=== PATIENT | female | born 1960 | race African-American/Black ===

== ENCOUNTER 2020-05-09 14:14 | Emergency (ER) | payer MEDICAID ==
[~2020-05-09] VITALS: Ht 165.1 cm; Wt 62.6 kg
[2020-05-09] MEDS ORDERED: SODIUM CHLORIDE 0.9% 1,000 ML IVB ONE (14:30)
[2020-05-09] MEDS ORDERED: ONDANSETRON HCL 4 MG/2 ML VIAL IV ONE (14:30)
[2020-05-09 14:48] LABS: Basophils # (auto) 0 10 ^3/uL (0-0.2); Eosinophils # (auto) 0.1 10 ^3/uL (0-0.8); Monocytes # (auto) 0.5 10 ^3/uL (0-1.3); Neutrophils # (auto) 2.4 10 ^3/uL (1.6-8.6); White Blood Cell 5.4 10^3/uL (4.4-10.8)
[2020-05-09 14:50] LABS: Basophils % (auto) 0.5 % (0.0-2.0); Eosinophils % (auto) 1.9 % (0.0-7.0); Hematocrit 39.2 % (36.0-46.0); Hemoglobin 13.2 g/dL (12.2-16.2); Lymphocytes # (auto) 2.3 10 ^3/uL (0.4-5.4); Lymphocytes % (auto) 43.4 % (10.0-50.0); Mean Corpuscular Hemoglobin 34.4 pg (28.0-32.0); Mean Corpuscular Hgb Conc. 33.8 g/dL (32.0-36.0); Mean Corpuscular Volume 101.8 fL (80.0-100.0); Monocytes % (auto) 9.6 % (0.0-12.0); Neutrophils % (auto) 44.6 % (37.0-80.0); Nucleated Red Blood Cells % 0.1 %; Platelet Count (auto) 252 10^3/uL (140-450); Red Blood Cells 3.85 10^6/uL (4.0-5.20); Red Cell Distribution Width 14.3 % (11.8-14.3)
[2020-05-09 15:17] LABS: INR 1.08 (0.9-1.15); Partial Thromboplastin Time 30.2 sec (23.0-31.2)
[2020-05-09 15:19] LABS: Magnesium 2.1 mg/dL (1.6-2.6)
[2020-05-09 15:23] LABS: Alanine Aminotransferase 22 U/L (13-56); Albumin 3.3 g/dL (3.4-5.0); Anion Gap 3 (5-15); Blood Urea Nitrogen 11 mg/dL (7-18); Calcium 8.9 mg/dL (8.5-10.1); Carbon Dioxide 28 mmol/L (21-32); Chloride 112 mmol/L (98-107); Glucose 79 mg/dL (74-106); Potassium 3.8 mmol/L (3.5-5.1); Sodium 143 mmol/L (136-145)
[2020-05-09 15:27] LABS: Alkaline Phosphatase 75 U/L (45-117); Aspartate Aminotransferase 18 U/L (15-37); BUN/Creatinine Ratio 21.2; Bilirubin, Total 0.9 mg/dL (0.2-1.0); GFR African American 155 mL/min; GFR Non-African American 128 mL/min
[2020-05-09] MEDS ORDERED: KETOROLAC TROMETH 30 MG/ML 1ML VIAL IV ONE ×2 (19:45)
[2020-05-09] MEDS ORDERED: SODIUM CHLORIDE 0.9% 1,000 ML IV ONE ×2 (19:45)
[2020-05-09 21:07] LABS: Urine Bacteria FEW /hpf (None Seen); Urine Blood TRACE /uL (Negative); Urine Mucus FEW (None Seen); Urine Specific Gravity 1.023 (1.001-1.035); Urine WBC 275 /hpf (0 - 5)
[2020-05-09] MEDS ORDERED: cefTRIAXone 1GM/50ML D5W 50 ML IV ONE (21:15)
[2020-05-09 22:00] VITALS: BP 145/93
== END 2020-05-09 22:25 | disposition home or self-care (01) ==
LOC: ER 14:14
DX: N20.0 Calculus of kidney (principal); K76.89 Other specified diseases of liver; N39.0 Urinary tract infection, site not specified; K59.00 Constipation, unspecified; Z20.822 Contact with and (suspected) exposure to COVID-19; Z98.84 Bariatric surgery status; Z88.0 Allergy status to penicillin; Z88.5 Allergy status to narcotic agent; Z88.1 Allergy status to other antibiotic agents; Z88.8 Allergy status to other drugs, medicaments and biological substances
CPT/HCPCS: 36415; 71045; 74176; 80053; 81001; 83690; 83735; 84484; 85025; 85610; 85730; 87426; 93005; 96361; 96365; 96375; 99285; C9803; J0696; J1885; J2405; J7030; U0003

== ENCOUNTER 2020-12-31 22:28 | Emergency (ER) | payer MEDICAID ==
[~2020-12-31] VITALS: Ht 165.1 cm; Wt 62.6 kg
[2020-12-31 23:32] LABS: Basophils # (auto) 0 10 ^3/uL (0-0.2); Basophils % (auto) 0.1 % (0.0-2.0); Eosinophils # (auto) 0.1 10 ^3/uL (0-0.8); Eosinophils % (auto) 1.6 % (0.0-7.0); Lymphocytes # (auto) 2.3 10 ^3/uL (0.4-5.4); Lymphocytes % (auto) 30.7 % (10.0-50.0); Mean Corpuscular Hemoglobin 33.8 pg (28.0-32.0); Mean Corpuscular Hgb Conc. 33.4 g/dL (32.0-36.0); Monocytes # (auto) 0.6 10 ^3/uL (0-1.3); Monocytes % (auto) 7.5 % (0.0-12.0); Neutrophils # (auto) 4.5 10 ^3/uL (1.6-8.6); Neutrophils % (auto) 60.1 % (37.0-80.0); Nucleated Red Blood Cells % 0.1 %; Red Blood Cells 3.86 10^6/uL (4.0-5.20); Red Cell Distribution Width 14.2 % (11.8-14.3); White Blood Cell 7.4 10^3/uL (4.4-10.8)
[2021-01-01 00:03] LABS: BUN/Creatinine Ratio 20.8; Calcium 8.2 mg/dL (8.5-10.1); Potassium 3.6 mmol/L (3.5-5.1)
[2021-01-01 00:08] LABS: Bilirubin, Total 1.5 mg/dL (0.2-1.0); Total Protein 6.6 g/dL (6.4-8.2)
[2021-01-01 01:21] LABS: Urine Amorphous Crystal FEW /hpf (None Seen); Urine Bacteria NONE SEEN /hpf (None Seen); Urine Blood Negative /uL (Negative); Urine Mucus FEW (None Seen); Urine Specific Gravity 1.026 (1.001-1.035); Urine WBC 42 /hpf (0 - 5)
[2021-01-01 04:00] VITALS: BP 125/65
[2021-01-01] MEDS ORDERED: ONDANSETRON ODT 4 MG TAB PO ONE (04:15)
[2021-01-01] MEDS ORDERED: ALUM & MAG HYDROX-SIMETH LIQ(MAALOX) 30 ML PO ONE (04:15)
== END 2021-01-01 04:26 | disposition home or self-care (01) ==
LOC: ER 22:32
DX: N39.0 Urinary tract infection, site not specified (principal); K29.70 Gastritis, unspecified, without bleeding; R74.8 Abnormal levels of other serum enzymes; Z98.84 Bariatric surgery status
CPT/HCPCS: 36415; 76705; 80053; 81001; 83690; 84484; 85025; 93005; 99285; Q0162

== ENCOUNTER 2021-03-18 03:04 | Emergency (ER) | payer MEDICAID | END 2021-03-18 03:15 | disposition left against medical advice (07) | LOC: ER 03:06 | DX: J11.1 Influenza due to unidentified influenza virus with other respiratory manifestations (principal); Z53.21 Procedure and treatment not carried out due to patient leaving prior to being seen by health care provider ==

== ENCOUNTER 2021-09-02 00:05 | Inpatient (IN) | payer MEDICAID ==
[~2021-09-02] VITALS: Ht 165.1 cm; Wt 30.5 kg
[2021-09-02] MEDS ORDERED: SODIUM CHLORIDE 0.9% 1,000 ML IVB ONE (00:30)
[2021-09-02] MEDS ORDERED: MORPHINE SULFATE 4 MG/ML SYR/VIAL IV ONE (00:30)
[2021-09-02] MEDS ORDERED: ONDANSETRON HCL 4 MG/2 ML VIAL IV ONE (00:30)
[2021-09-02 01:33] LABS: Urine Bacteria NONE SEEN /hpf (None Seen); Urine Blood Negative /uL (Negative); Urine Specific Gravity 1.014 (1.001-1.035); Urine WBC 45 /hpf (0 - 5)
[2021-09-02 03:20] LABS: Basophils # (auto) 0 10 ^3/uL (0-0.2); Basophils % (auto) 0.4 % (0.0-2.0); Eosinophils # (auto) 0.1 10 ^3/uL (0-0.8); Eosinophils % (auto) 1.3 % (0.0-7.0); Hematocrit 35.8 % (36.0-46.0); Hemoglobin 11.9 g/dL (12.2-16.2); Lymphocytes # (auto) 2.1 10 ^3/uL (0.4-5.4); Lymphocytes % (auto) 20.7 % (10.0-50.0); Mean Corpuscular Hemoglobin 33.7 pg (28.0-32.0); Mean Corpuscular Hgb Conc. 33.4 g/dL (32.0-36.0); Mean Corpuscular Volume 100.8 fL (80.0-100.0); Monocytes # (auto) 0.5 10 ^3/uL (0-1.3); Monocytes % (auto) 4.8 % (0.0-12.0); Neutrophils # (auto) 7.2 10 ^3/uL (1.6-8.6); Neutrophils % (auto) 72.8 % (37.0-80.0); Nucleated Red Blood Cells % 0.1 %; Red Blood Cells 3.55 10^6/uL (4.0-5.20); Red Cell Distribution Width 14.9 % (11.8-14.3); White Blood Cell 9.9 10^3/uL (4.4-10.8)
[2021-09-02 03:39] LABS: Albumin 3.1 g/dL (3.4-5.0); Calcium 8.4 mg/dL (8.5-10.1); Potassium 4.1 mmol/L (3.5-5.1)
[2021-09-02 03:41] LABS: Bilirubin, Total 0.4 mg/dL (0.2-1.0); Total Protein 6.2 g/dL (6.4-8.2)
[2021-09-02] MEDS ORDERED: cefTRIAXone 1GM/50ML D5W 50 ML IV ONE (05:15)
[2021-09-02] MEDS ORDERED: ONDANSETRON HCL 4 MG/2 ML VIAL IV PRN (06:15)
[2021-09-02] MEDS ORDERED: SODIUM CHLORIDE 0.9% 1,000 ML IV SCH (06:15)
[2021-09-02] MEDS ORDERED: NITROGLYCERIN 0.4 MG SL TAB SL PRN (06:15)
[2021-09-02] MEDS ORDERED: LORazepam 0.5 MG TAB PO PRN (06:15)
[2021-09-02] MEDS ORDERED: DOCUSATE SOD 100 MG CAP PO PRN (06:15)
[2021-09-02] MEDS ORDERED: TEMAZEPAM 15 MG CAP PO PRN (06:15)
[2021-09-02] MEDS ORDERED: HYDROcodone-ACET 5/325MG TAB PO PRN (10:30)
[2021-09-02] MEDS ORDERED: CEPH-509 PO (11:02)
[2021-09-02] MEDS ORDERED: CEPHALEXIN 250 MG CAP PO ONE (11:15)
[2021-09-02 11:33] VITALS: BP 127/76
[2021-09-03] MEDS ORDERED: cefTRIAXone 1GM/50ML D5W 50 ML IV SCH (10:00)
== END 2021-09-02 11:42 | disposition home or self-care (01) | DRG 463 ==
LOC: EDBD 00:05 → ER 00:05 → OVERFLOW 06:05
PROVIDERS: ADMIT Hospitalist; ATTEND Hospitalist
DX: N39.0 Urinary tract infection, site not specified (principal); I10 Essential (primary) hypertension; J45.909 Unspecified asthma, uncomplicated; Z20.822 Contact with and (suspected) exposure to COVID-19; Z88.1 Allergy status to other antibiotic agents; Z88.0 Allergy status to penicillin; Z88.5 Allergy status to narcotic agent; Z98.84 Bariatric surgery status; Z90.49 Acquired absence of other specified parts of digestive tract; Z82.49 Family history of ischemic heart disease and other diseases of the circulatory system
CPT/HCPCS: 36415; 74176; 80053; 81001; 83690; 84484; 85025; 87086; 93005; 96361; 96374; 96375; G0378; J0696; J2405

== ENCOUNTER 2025-02-05 14:03 | Inpatient (IN) | payer BC, MEDICAID ==
[~2025-02-05] VITALS: Ht 165.1 cm; Wt 67.3 kg
[~2025-02-05 14:03] MED LIST: CEPH-509 PO
[2025-02-05 14:35] LABS: Hematocrit 39.6 % (36.0-46.0); Hemoglobin 13.4 g/dL (12.2-16.2); Mean Corpuscular Hemoglobin 33.0 pg (28.0-32.0); Mean Corpuscular Volume 97.3 fL (80.0-100.0); Nucleated Red Blood Cells % 0.1 %
[2025-02-05 14:45] LABS: Chloride 104 mmol/L (98-107); Sodium 141 mmol/L (136-145)
[2025-02-05 14:46] LABS: Anion Gap 8 (5-15); Calcium 9.5 mg/dL (8.7-10.4); Carbon Dioxide 29 mmol/L (20-31)
[2025-02-05 14:51] LABS: BUN/Creatinine Ratio 13.1 (10.0-20.0); Blood Urea Nitrogen 11 mg/dL (9-23); Potassium 3.1 mmol/L (3.5-5.1)
[2025-02-05 14:53] LABS: Glucose 64 mg/dL (74-106)
--- NOTE | 2025-02-05 14:54 | DVH ---
CLINICAL INFORMATION: CHEST PAIN. TECHNIQUE: Frontal and lateral chest radiographs were obtained. COMPARISON: CHEST PORTABLE on DOS: 05/09/20 FINDINGS: Lungs: Mild elevation of the right hemidiaphragm. Lungs are clear. Cardiac: Heart size is within normal limits. Pulmonary vasculature: Unremarkable Mediastinum/ese: Within normal limits. Bones: No evidence of acute osseous abnormality. Other: No other significant finding. IMPRESSION: No evidence of acute disease in the chest.
--- NOTE | 2025-02-05 15:11 | ECG ---
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
--- NOTE | 2025-02-05 15:41 | ED.PDOC ---
HPI Comments 64 y/o F, with PMHx of asthma presents to the ED for CC of chest pain. Patient states, she has been experiencing worsening left-sided chest pain that radiates to her neck x1week. Patient further reports, associated symptoms of shortness of breath, dizziness, and fatigue. Patient denies extremity swelling, palpitations, headache, nausea, or vomiting. No other symptoms or modifying factors are present at this time. Chief Complaint: Chest Pain Time Seen by MD: 15:30 Primary Care Provider: Dennis Gomez Reviewed Notes: Nurses Notes, Medications, Allergies Allergies: Coded Allergies: Codeine (Verified Allergy, Unknown, 05/09/20) Erythromycin (Verified Allergy, Unknown, 05/09/20) Hydromorphone (Verified Allergy, Unknown, 05/09/20) Penicillins (Verified Allergy, Unknown, 05/09/20) Home Meds Active Scripts Cephalexin (KEFLEX 500) 500 Mg Cap, 1 CAP PO TID for 5 Days, #15 CAP Prov:HARSHAL NUNES MD 09/02/21 Information Source: Patient Mode of Arrival: Ambulatory Severity: Moderate Timing: Weeks Duration: Since onset Prehospital treatment: None Location: Chest (L) Radiation: Neck Cardiac Risk Factors: None PE Risk Factors: None History of: None Modifying Factors: Nothing Associated Signs and Symptoms: SOB Past Medical History PAST MEDICAL HISTORY: Asthma Surgical History: Cholecystectomy SHELLFISH SORTER History: No Pertinent SHELLFISH SORTER History Family History Family History: Family hx of HTN Social History Smoker: Non-Smoker Alcohol: Rarely Drugs: Denies Drug Use Lives In: Home Constitutional: reports: fatigue; denies: chills, diaphoresis, fever, malaise, sweats, weakness, others EENTM: denies: blurred vision, double vision, ear bleeding, ear discharge, ear drainage, ear pain, ear ringing, eye pain, eye redness, hearing loss, mouth pain, mouth swelling, nasal discharge, nose bleeding, nose congestion, nose pain, photophobia, tearing, throat pain, throat swelling, voice changes, others Respiratory: reports: shortness of breath; denies: cough, hemoptysis, orthopnea, SOB at rest, SOB with excertion, stridor, wheezing, others Cardiovascular: reports: chest pain; denies: dizzy spells, diaphoresis, Dyspnea on exertion, edema, irregular heart beat, left arm pain, lightheadedness, palpitations, PND, syncope, others Gastrointestinal: denies: abdomen distended, abdominal pain, blood streaked bowels, constipated, diarrhea, dysphagia, difficulty swallowing, hematemesis, melena, nausea, poor appetite, poor fluid intake, rectal bleeding, rectal pain, vomiting, others Genitourinary: denies: abnormal vagina bleeding, burning, dyspareunia, dysuria, flank pain, frequency, hematuria, incontinence, pain, , vagina discharge, urgency, others Neurological: reports: dizziness; denies: fainting, headache, left sided numbness, left sided weakness, numbness, paresthesia, pre-existing deficit, right sided numbness, right sided weakness, seizure, speech problems, tingling, tremors, weakness, others Musculoskeletal: denies: back pain, gout, joint pain, joint swelling, muscle pain, muscle stiffness, neck pain, others Integumetry: denies: bruises, change in color, change in hair/nails, dryness, laceration, lesions, lumps, rash, wounds, others Allergic/Immunocompromised: denies: Difficulty Healing, Frequent Infections, Hives, Itching, others Hematologic/Lymphatic: denies: anemia, blood clots, easy bleeding, easy bruising, swollen glands, others Endocrine: denies: excessive hunger, excessive sweating, excessive thirst, excessive urination, flushing, intolerance to cold, intolerance to heat, unexplained weight gain, unexplained weight loss, others Psychiatric: denies: anxiety, bipolar disorder, depression, hopeless, panic disorder, schizophrenia, sleepless, suicidal, others All Other Systems: Reviewed and Negative Physical Exam General Appearance: No Apparent Distress, Normal HEENT: Normal ENT Inspection, Pharynx Normal Neck: Full Range of Motion, Non-Tender, Normal, Normal Inspection Respiratory: Chest Non-Tender, Lungs Clear, No Accessory Muscle Use, No Respiratory Distress, Normal Breath Sounds Cardiovascular: No Edema, No Murmur, No Gallop, Normal Peripheral Pulses, Regular Rate/Rhythm Breast Exam: Deferred Gastrointestinal: No Organomegaly, Non Tender, No Pulsatile Mass, Normal Bowel Sounds, Soft Genitalia: Deferred Pelvic: Deferred Rectal: Deferred Extremities: No calf tenderness, Normal capillary refill, Normal inspection, Normal range of motion, Non-tender, No pedal edema Musculoskeletal : Apperance: Normal Neurologic: Alert, program coordinator for residence life II-XII nml as Tested, No Motor Deficits, Normal Affect, Normal Mood, No Sensory Deficits Cerebellar Function: Normal Reflexes: Normal Skin: Dry, Normal Color, Warm Lymphatic: No Adenopathy Was a procedure done? Was a procedure done?: No CP Differential Dx Differential Diagnosis: Angina, Anxiety / Panic Attack Differential Diagnosis: HTN Essential, HTN Accelerated Differential Diagnosis: Chest Wall Pain, Costochondritis, Esophageal reflux/spasm, Gastritis X-Ray, Labs, Meds, VS Vital Signs Date Time Temp Pulse Resp B/P (MAP) Pulse Ox O2 Delivery O2 Flow Rate FiO2 02/05/25 16:03 97.7 65 18 99/66 (77) 100 97.7 99/66 (77) 02/05/25 15:10 61 02/05/25 14:10 97.9 71 16 104/65 98 97.9 02/05/25 14:09 67 Lab Test 02/05/25 15:09 02/05/25 14:14 Range/Units Troponin I High Sensitivity < 3 L < 3 L </=34 ng/L White Blood Count 7.4 4.4-10.8 10^3/uL Red Blood Count 4.07 4.0-5.20 10^6/uL Hemoglobin 13.4 12.2-16.2 g/dL Hematocrit 39.6 36.0-46.0 % Mean Corpuscular Volume 97.3 80.0-100.0 fL Mean Corpuscular Hemoglobin 33.0 H 28.0-32.0 pg Mean Corpuscular Hemoglobin Concent 33.9 32.0-36.0 g/dL Red Cell Distribution Width 14.2 11.8-14.3 % Platelet Count 264 140-450 10^3/uL Mean Platelet Volume 8.0 6.9-10.8 fL Neutrophils (%) (Auto) 52.5 37.0-80.0 % Lymphocytes (%) (Auto) 35.9 10.0-50.0 % Monocytes (%) (Auto) 10.2 0.0-12.0 % Eosinophils (%) (Auto) 1.2 0.0-7.0 % Basophils (%) (Auto) 0.2 0.0-2.0 % Neutrophils # (Auto) 3.9 1.6-8.6 10 ^3/uL Lymphocytes # (Auto) 2.6 0.4-5.4 10 ^3/uL Monocytes # (Auto) 0.7 0-1.3 10 ^3/uL Eosinophils # (Auto) 0.1 0-0.8 10 ^3/uL Basophils # (Auto) 0 0-0.2 10 ^3/uL Nucleated Red Blood Cells 0.1 % Sodium Level 141 136-145 mmol/L Potassium Level 3.1 L 3.5-5.1 mmol/L Chloride Level 104 98-107 mmol/L Carbon Dioxide Level 29 20-31 mmol/L Anion Gap 8 5-15 Blood Urea Nitrogen 11 9-23 mg/dL Creatinine 0.84 0.550-1.02 mg/dL Glomerular Filtration Rate Calc 78 >90 mL/min BUN/Creatinine Ratio 13.1 10.0-20.0 Serum Glucose 64 L 74-106 mg/dL Calcium Level 9.5 8.7-10.4 mg/dL [place] [id number] Ph: [phone] DIAGNOSTIC IMAGING Diagnostic Imaging Report : [id number] Signed PATIENT: BIENVENIDO BRITOACCT: [id number] UNIT: [id number] : 1960 LOC: ER ROOM / BED: / AGE / SEX: 64 / F ADM STATUS: REG ER SERVICE ORDERING PHYSICIAN: ROMEO JONES MD PROCEDURE(s): CXR2 - CHEST TWO VIEWS ROUTINE REASON: CHEST PAIN ORDER NUMBER(s): [id number], ACCESSION NUMBER(s): [id number] CLINICAL INFORMATION: CHEST PAIN. TECHNIQUE: Frontal and lateral chest radiographs were obtained. COMPARISON: CHEST PORTABLE on DOS: 05/09/20 FINDINGS: Lungs: Mild elevation of the right hemidiaphragm. Lungs are clear. Cardiac: Heart size is within normal limits. Pulmonary vasculature: Unremarkable Mediastinum/ese: Within normal limits. Bones: No evidence of acute osseous abnormality. Other: No other significant finding. IMPRESSION: No evidence of acute disease in the chest. ATED BY: JOSR PAVON DO DICTATED DATE/TIME: 02/05/25 1451 SIGNED BY: JOSR PAVON DO SIGNED DATE/TIME: 02/05/25 1451 CC: Time of 1ST Reevaluation: 16:00 Reevaluation 1ST: Unchanged Patient Education/Counseling: Diagnosis, Treatment Family Education/Counseling: No Family Present SEPSIS Sepsis Screen Date sepsis recognized/suspect: Feb 05, 2025 Time Sepsis recognized/suspect: 1414 Recent Procedure: No On Antibiotic Therapy: No Respiratory Rate >20: No Heart Rate >90: No Temp<36 C (96.8 F) or >38.3 C: No SBP <90 or MAP <65 mmHG: No New Acute Mental Status Change: No Is the patient on CPAP, BIPAP,: No Physician Orders Electrocardigram (02/05/25 15:06) Electrocardigram (02/05/25 17:06) Chest Two Views Routine (02/05/25 14:29) Vital Signs Date Time Temp Pulse Resp B/P (MAP) Pulse Ox O2 Delivery O2 Flow Rate FiO2 02/05/25 16:03 97.7 65 18 99/66 (77) 100 97.7 99/66 (77) 02/05/25 15:10 61 02/05/25 14:10 97.9 71 16 104/65 98 97.9 02/05/25 14:09 67 Laboratory Tests Test 02/05/25 14:14 White Blood Count 7.4 10^3/uL (4.4-10.8) Departure 1 Departure Time of Disposition: 18:02 (Patient presented with chest pain that was concerning for possible STEMI, ACS, PE, Pneumonia, Muscle Strain, COPD, Dissection. Data: 1. I ordered and reviewed the result of at least 3 labs including a CBC, BMP, and Troponin. 2. I independently interpreted the following tests: EKG which shows sinus arrhythmia and Chest X-ray which shows benign chest.Risk:This patient has a high risk of morbidity due to further diagnostic testing or treatment and may suffer from an acute cardiac or respiratory disorder. Workup reveals concern for ACS and patient should be admitted for further workup and possible expert consultation. ) Impression: Primary Impression: Acute chest pain Disposition: ADMITTED INPATIENT Admit to: Tele Condition: Guarded Critical Care Note Critical Care Time?: Yes Critical care comment: Acute chest pain Authorized and Performed by: Romeo Jones MD Total critical care time: Approximately 39 minutes Due to a high probability of clinically significant, life threatening deterioration, the patient required my highest level of preparedness to intervene emergently and I personally spent this critical care time directly and personally managing the patient. This critical care time included obtaining a history; examining the patient; pulse oximetry; ordering and review of studies; arranging urgent treatment with development of a management plan; evaluation of patient's response to treatment; frequent reassessment; and, discussions with other providers. This critical care time was performed to assess and manage the high probability of imminent, life-threatening deterioration that could result in multi-organ failure. It was exclusive of separately billable procedures and treating other patients and teaching time. Please see my other sections and the rest of the note for further information on patient assessment and treatment. Stability Stability form required: No Heart Score Heart Score: Heart Score Response (Comments) Value History N/A 0 EKG N/A 0 Age 45-64 1 Risk Factors No known risk factors 0 Troponin Normal limit 0 Total 1 I personally scribed for ROMEO JONES MD ([email or web address]) on 02/05/25 at 15:41. Electronically submitted by Rachel Francois ([employer]). I personally scribed for ROMEO JONES MD ([email or web address]) on 02/05/25 at 15:42. Electronically submitted by Rachel Francois ([employer] I personally scribed for ROMEO JONES MD ([email or web address]) on 02/05/25 at 16:15. Electronically submitted by Rachel Francois ([facility] [employer] ROMEO JONES MD Feb 05, 2025 15:41
[2025-02-05] MEDS ORDERED: MORPHINE SULFATE INJ 2 MG/ml SYRG IV PRN (20:15)
[2025-02-05] MEDS ORDERED: NITROGLYCERIN 0.4 MG SL TAB SL PRN (20:15)
--- NOTE | 2025-02-05 21:39 | DVHHP2 ---
History of Present Illness Reason for Visit: Chest pain History of Present Illness 64-year-old female presents for evaluation of chest pain. Patient reports a one-week history of left-sided chest pain. She states his symptoms became more intense today so she presented for further evaluation. She associates shortness for breath with nausea and vomiting. Currently rates the pain at 7/10 intensity. Past Medical History Hypertension, thyroid, asthma Past Surgical History Cholecystectomy Family History Hypertension Smoke: No ALCOHOL: occassional Drugs: None Lives: with Family Review of Systems Review of Systems Review of systems are currently negative otherwise addressed in HPI. Allergies: Coded Allergies: Codeine (Verified Allergy, Unknown, 05/09/20) Erythromycin (Verified Allergy, Unknown, 05/09/20) Hydromorphone (Verified Allergy, Unknown, 05/09/20) Penicillins (Verified Allergy, Unknown, 05/09/20) Medications Current Medications Medications Dose Ordered Sig/Chavez Route Start Time Stop Time Status Last Admin Dose Admin Nitroglycerin 0.4 mg Q5MINP PRN SL 02/05/25 20:15 Morphine Sulfate 2 mg Q30M PRN IV 02/05/25 20:15 Exam Vital Signs Vital Signs Date Time Temp Pulse Resp B/P (MAP) Pulse Ox O2 Delivery O2 Flow Rate FiO2 02/05/25 20:05 98.4 82 18 104/75 (85) 99 98.4 Exam Gen: 64-year-old female in mild distress Skin: Warm, dry, normal color and texture, no rash. HEENT: Normocephalic atraumatic, mucous membranes moist and pink. Neck: Cervical and supraclavicular nodes normal without enlargement, trachea is midline, thyroid gland is normal without masses. Pulmonary: Clear to auscultation and percussion bilaterally. Cardiac: Regular rate and rhythm. No murmur Abdomen: Soft, nontender, nondistended, bowel sounds present all 4 quadrants, no guarding, no rigidity, no organomegaly. Extremities: No cyanosis, clubbing, no edema Neuro: Cranial nerves II through XII grossly intact, normal affect and speech, no focal motor deficits. Labs/Xrays ORDERING PHYSICIAN: ROMEO JONES MD PROCEDURE(s): CXR2 - CHEST TWO VIEWS ROUTINE REASON: CHEST PAIN ORDER NUMBER(s): [id number], ACCESSION NUMBER(s): [id number] CLINICAL INFORMATION: CHEST PAIN. TECHNIQUE: Frontal and lateral chest radiographs were obtained. COMPARISON: CHEST PORTABLE on DOS: 05/09/20 FINDINGS: Lungs: Mild elevation of the right hemidiaphragm. Lungs are clear. Cardiac: Heart size is within normal limits. Pulmonary vasculature: Unremarkable Mediastinum/ese: Within normal limits. Bones: No evidence of acute osseous abnormality. Other: No other significant finding. IMPRESSION: No evidence of acute disease in the chest. Labs Test 02/05/25 15:09 02/05/25 14:14 Range/Units Troponin I High Sensitivity < 3 L </=34 ng/L White Blood Count 7.4 4.4-10.8 10^3/uL Red Blood Count 4.07 4.0-5.20 10^6/uL Hemoglobin 13.4 12.2-16.2 g/dL Hematocrit 39.6 36.0-46.0 % Mean Corpuscular Volume 97.3 80.0-100.0 fL Mean Corpuscular Hemoglobin 33.0 H 28.0-32.0 pg Mean Corpuscular Hemoglobin Concent 33.9 32.0-36.0 g/dL Red Cell Distribution Width 14.2 11.8-14.3 % Platelet Count 264 140-450 10^3/uL Mean Platelet Volume 8.0 6.9-10.8 fL Neutrophils (%) (Auto) 52.5 37.0-80.0 % Lymphocytes (%) (Auto) 35.9 10.0-50.0 % Monocytes (%) (Auto) 10.2 0.0-12.0 % Eosinophils (%) (Auto) 1.2 0.0-7.0 % Basophils (%) (Auto) 0.2 0.0-2.0 % Neutrophils # (Auto) 3.9 1.6-8.6 10 ^3/uL Lymphocytes # (Auto) 2.6 0.4-5.4 10 ^3/uL Monocytes # (Auto) 0.7 0-1.3 10 ^3/uL Eosinophils # (Auto) 0.1 0-0.8 10 ^3/uL Basophils # (Auto) 0 0-0.2 10 ^3/uL Nucleated Red Blood Cells 0.1 % Sodium Level 141 136-145 mmol/L Potassium Level 3.1 L 3.5-5.1 mmol/L Chloride Level 104 98-107 mmol/L Carbon Dioxide Level 29 20-31 mmol/L Anion Gap 8 5-15 Blood Urea Nitrogen 11 9-23 mg/dL Creatinine 0.84 0.550-1.02 mg/dL Glomerular Filtration Rate Calc 78 >90 mL/min BUN/Creatinine Ratio 13.1 10.0-20.0 Serum Glucose 64 L 74-106 mg/dL Calcium Level 9.5 8.7-10.4 mg/dL SEPSIS Sepsis Screen Date sepsis recognized/suspect: Feb 05, 2025 Time Sepsis recognized/suspect: 1414 Recent Procedure: No On Antibiotic Therapy: No Respiratory Rate >20: No Heart Rate >90: No Temp<36 C (96.8 F) or >38.3 C: No SBP <90 or MAP <65 mmHG: No New Acute Mental Status Change: No Is the patient on CPAP, BIPAP,: No Physician Orders Electrocardigram (02/05/25 15:06) Electrocardigram (02/05/25 17:06) Chest Two Views Routine (02/05/25 14:29) Admit (02/05/25 20:03) Nitroglycerin Sublingual (Ntrostat Subli (02/05/25 20:15) Morphine Sulfate Injection (02/05/25 20:15) Stat Ekg For Chest Pain (02/05/25 20:03) Notify Md Of Changes From Base (02/05/25 20:03) Bottle Label Inspector For 24 Hours (02/05/25 20:03) Emergency Dysrhythmia Protocol (02/05/25 20:03) Rhythm Strips Once Every Shift (02/05/25 20:03) Oxygen By Nasal Cannula (02/05/25 20:03) Vital Signs Date Time Temp Pulse Resp B/P (MAP) Pulse Ox O2 Delivery O2 Flow Rate FiO2 02/05/25 20:05 98.4 82 18 104/75 (85) 99 98.4 02/05/25 16:03 97.7 65 18 99/66 (77) 100 97.7 99/66 (77) 02/05/25 15:10 61 02/05/25 14:10 97.9 71 16 104/65 98 97.9 02/05/25 14:09 67 Laboratory Tests Test 02/05/25 14:14 White Blood Count 7.4 10^3/uL (4.4-10.8) Assessment/Plan Assessment/Plan Assessment Chest pain rule out ACS Hypotension Hypokalemia Plan Admit the patient to telemetry to the hospitalist Echocardiogram pending Resume home medications Replete electrolytes Continue treatment per orders. Plan discussed with: Patient My Orders Orders - MARY ANNE ARTHUR Procedure Category Date Status Time Admit ADMIT 02/05/25 Transmitted 20:03 Nitroglycerin PHA 02/05/25 In Process Sublingual (Ntrostat 20:15 Morphine Sulfate PHA 02/05/25 In Process Injection 20:15 Stat Ekg For Chest SETH 02/05/25 In Process Pain 20:03 Notify Of Changes [facility] 02/05/25 In Process From Base 20:03 Bottle Label Inspector For [facility] 02/05/25 In Process 24 Hours 20:03 Emergency Dysrhythmia [facility] 02/05/25 In Process Protocol 20:03 Rhythm Strips Once [facility] 02/05/25 In Process Every Shift 20:03 Oxygen By Nasal RT 02/05/25 Transmitted Cannula 20:03 Date of Service: Feb 05, 2025 Billing Provider: MARY ANNE ARTHUR Common Visit Codes: [id number] INP/OBS CARE (HIGH) MARY ANNE ARTHUR Feb 05, 2025 21:39
[2025-02-05] MEDS ORDERED: ONDANSETRON HCL 4 MG/2 ML VIAL IV PRN (21:45)
[2025-02-05] MEDS ORDERED: ACETAMINOPHEN 325 MG TAB PO PRN (21:45)
[2025-02-05 22:00] LABS: Triglycerides 76 mg/dL (< 150)
[2025-02-05 22:02] LABS: Cholesterol 151 mg/dL (< 200); HDL Cholesterol 53 mg/dL (40-59)
[2025-02-05] MEDS: POTASSIUM CHL 20 Meq TABLET PO ONE (22:22)
[2025-02-05] MEDS: ATORVASTATIN 20 MG TAB PO SCH (22:26)
[2025-02-05 22:43] VITALS: BP 123/79; PULSE 74; RESP 17; TEMP 97.9; O2SAT 98
[2025-02-06] VITALS (8 sets, daily range): BP systolic 92–112; BP diastolic 60–76; PULSE 68–84; RESP 17–18; TEMP 96.2–98.3; O2SAT 99
[2025-02-06] MEDS ORDERED: TIZA4TAB9 PO (00:06)
[2025-02-06] MEDS ORDERED: BISA-51 OR (00:06)
[2025-02-06] MEDS ORDERED: OXYC1CAP9 PO (00:06)
[2025-02-06] MEDS ORDERED: CHLO25TA2 PO (00:06)
[2025-02-06] MEDS ORDERED: LEVO25TA6 PO (00:06)
[2025-02-06] MEDS ORDERED: ATEN50TA PO (00:06)
[2025-02-06] MEDS: LEVOTHYROXINE SODIUM 25 MCG TAB PO SCH (05:38)
--- NOTE | 2025-02-06 06:42 | ECG ---
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
[2025-02-06 07:26] LABS: Anion Gap 9 (5-15); Carbon Dioxide 27 mmol/L (20-31); Chloride 106 mmol/L (98-107); Potassium 3.7 mmol/L (3.5-5.1); Sodium 142 mmol/L (136-145)
[2025-02-06 07:28] LABS: Calcium 9.2 mg/dL (8.7-10.4)
[2025-02-06 07:32] LABS: BUN/Creatinine Ratio 28.3 (10.0-20.0); Blood Urea Nitrogen 15 mg/dL (9-23)
[2025-02-06 07:49] LABS: Glucose 70 mg/dL (74-106)
[2025-02-06] MEDS: ASPirin-EC 81 mg tab PO SCH (11:04)
--- NOTE | 2025-02-06 12:57 | DVHPN2 ---
Assessment/Plan Assessment/Plan progress note 64 F with GERD, chronic pain, hypothyroidism, liver nodule? admitted for chest pain. per pt she has cough since 6 weeks and chest pain since 2 days. also has metallic taste at mouth. no fever, chills, production. chest pain reproducible by palpation, also have epigastric tenderness. trop neg, BNP normal, lung sounds normal, CXR clear. has chronic pain and CURES reviewed, taking oxy q5 daily. used to drink, denies smomking or drugs. 02/06 seen today, pending echo physical exam aox4 clear breath sounds s1 s2 rrr chest wall tenderness on palpation abdomen soft, epigastric tenderness no LE edema labs ekg imaging reviewed echo pending read, looks wnl assessment and plan chest pain likely chostochondritis ACS ruled out chronic cough likely GERD w LPR gastritis Pepcid, Maalox Toradol once pain management pending echo flonase diet cardiac dvt ppx SCD full code Plan discussed with: Patient My Orders Orders - QING GOULD MD Procedure Category Date Status Time Oxycodone Immediate PHA 02/06/25 In Process Rel Tablet 10:30 Famotidine Tablet PHA 02/06/25 Verified (Pepcid Tablet) 22:00 Alum & Mag PHA 02/06/25 Verified Hydrox-Simethicone 18:00 Ketorolac Injection PHA 02/06/25 Verified (Toradol Injection) 13:00 Fluticasone Nasal PHA 02/06/25 Verified [place] (Flonase [place]) 22:00 Date of Service: Feb 06, 2025 Billing Provider: QING GOULD MD Common Visit Codes: [id number] INP/OBS CARE(HIGH) QING GOULD MD Feb 06, 2025 12:57
--- NOTE | 2025-02-06 13:06 | DVHSR ---
APPROVED REPORT EXAM: Two-dimensional and M-mode echocardiogram with Doppler and color Doppler. Blood Pressure: 112/65 mmHg INDICATION Chest Pain RISK FACTORS Height: 5'5", Weight: 139 DIMENSIONS LVDd 4.4 (3.8-5.7cm) LA (2D) 3.5 (1.9-4.0cm) Aortic Root 2.9 (2.0-3.7cm) LVDs 2.6 (2.5-4.0cm) LA (MM) (1.9-4.0cm) Aortic Cusp Exc 1.9 (1.5-2.0cm) EF (%) 70.0 (55-70%) Rt. Atrium 3.6 (1.9-4.0cm) Asc. Aorta 2.8 cm IVSd 0.6 (0.7-1.1cm) RV (D) 3.2 (1.8-2.4cm) PWd 0.6 (0.7-1.1cm) Mitral Valve Mitral Mitral Stenosis E wave 0.80m/s MV Mean GR. mmHg A wave 0.79m/s MV Peak GR. mmHg E/A ratio 1.0 2D MVA cm2 DECEL Time 176ms PRESS 1/2 Time ms Aortic Valve Aortic Valve Aortic Stenosis V1 1.14m/s AO Mean GR. 4mmHg V2 1.35m/s AO Peak GR. 7mmHg LVOT Diameter 2.0 (1.8-2.4cm) Doppler RADHA 2.65cm2 Pulmonic Valve V2 0.73m/s Conclusion lvef 65% normal rv function left atrium enlarged no severe valve abnormality noted
[2025-02-06] MEDS: KETOROLAC TROMETH 30 MG/ML 1ML VIAL IV ONE (15:52)
[2025-02-06] MEDS: MAALOX PLUS or MAALOX 30 ML PO SCH (17:50)
[2025-02-06] MEDS: FAMOTIDINE 20 MG TAB PO SCH (21:42)
[2025-02-06] MEDS: FLUTICASONE PROP NASAL SPR 0.05 % (50MCG) 16GM EACHNOSTRI SCH (21:42)
[2025-02-07 01:00] VITALS: BP 96/62; PULSE 68; RESP 18; TEMP 98.2; O2SAT 99
[2025-02-07 05:00] VITALS: BP 92/58; PULSE 63; RESP 18; TEMP 97.7; O2SAT 100
[2025-02-07 08:00] VITALS: PULSE 68
[2025-02-07 09:00] VITALS: BP 95/62; PULSE 74; RESP 16; TEMP 98; O2SAT 100
[2025-02-07] MEDS ORDERED: FAMO-161 PO (12:47)
[2025-02-07] MEDS ORDERED: MAA30LQ PO (12:47)
[2025-02-07] MEDS ORDERED: FLUT1SPR5 (12:47)
--- NOTE | 2025-02-07 12:51 | DVHDS2 ---
Discharge Summary Date of Admission Feb 05, 2025 at 20:03 Date of Discharge: Feb 07, 2025 Labs/Diagnostic Data: Laboratory Results Test 02/06/25 06:48 02/05/25 15:09 02/05/25 14:14 Sodium Level 142 mmol/L (136-145) Potassium Level 3.7 mmol/L (3.5-5.1) Chloride Level 106 mmol/L (98-107) Carbon Dioxide Level 27 mmol/L (20-31) Anion Gap 9 (5-15) Blood Urea Nitrogen 15 mg/dL (9-23) Creatinine 0.53 mg/dL (0.550-1.02) Glomerular Filtration Rate Calc 103 mL/min (>90) BUN/Creatinine Ratio 28.3 (10.0-20.0) Serum Glucose 70 mg/dL (74-106) Calcium Level 9.2 mg/dL (8.7-10.4) Troponin I High Sensitivity < 3 ng/L (</=34) White Blood Count 7.4 10^3/uL (4.4-10.8) Red Blood Count 4.07 10^6/uL (4.0-5.20) Hemoglobin 13.4 g/dL (12.2-16.2) Hematocrit 39.6 % (36.0-46.0) Mean Corpuscular Volume 97.3 fL (80.0-100.0) Mean Corpuscular Hemoglobin 33.0 pg (28.0-32.0) Mean Corpuscular Hemoglobin Concent 33.9 g/dL (32.0-36.0) Red Cell Distribution Width 14.2 % (11.8-14.3) Platelet Count 264 10^3/uL (140-450) Mean Platelet Volume 8.0 fL (6.9-10.8) Neutrophils (%) (Auto) 52.5 % (37.0-80.0) Lymphocytes (%) (Auto) 35.9 % (10.0-50.0) Monocytes (%) (Auto) 10.2 % (0.0-12.0) Eosinophils (%) (Auto) 1.2 % (0.0-7.0) Basophils (%) (Auto) 0.2 % (0.0-2.0) Neutrophils # (Auto) 3.9 10 ^3/uL (1.6-8.6) Lymphocytes # (Auto) 2.6 10 ^3/uL (0.4-5.4) Monocytes # (Auto) 0.7 10 ^3/uL (0-1.3) Eosinophils # (Auto) 0.1 10 ^3/uL (0-0.8) Basophils # (Auto) 0 10 ^3/uL (0-0.2) Nucleated Red Blood Cells 0.1 % Triglycerides Level 76 mg/dL (< 150) Cholesterol Level 151 mg/dL (< 200) LDL Cholesterol 91 mg/dL (< 100) HDL Cholesterol 53 mg/dL (40-59) Thyroid Stimulating Hormone (TSH) 0.98 uIU/mL (0.55-4.78) Other Laboratory Tests 02/06/25 06:48 02/05/25 14:14 Brief Hx & Hospital Course: 64 F with GERD, chronic pain, hypothyroidism, liver nodule? admitted for chest pain. per pt she has cough since 6 weeks and chest pain since 2 days. also has metallic taste at mouth. no fever, chills, production. chest pain reproducible by palpation, also have epigastric tenderness. trop neg, BNP normal, lung sounds normal, CXR clear. has chronic pain and CURES reviewed, taking oxy q5 daily. used to drink, denies smomking or drugs. resumed home oxy, started on maalox and protonix, toradol once which improved chest wall pain but worsened abdominal pain. both cough and abdominal pain improved today w/o cough meds. stable to [facility] home. educated on lifestyle changes, discharged with maalox and pepcid, resume home meds. [facility] next thursday. Condition at Discharge: Good Final Diagnosis/Problems List chest pain likely chostochondritis ACS ruled out chronic cough likely GERD w LPR gastritis Discharge Disposition: Home Discharge Instruct/Medications Diet: See Comment Diet comment: small frequent feeding, avoid meals close to bedtime, avoid big fatty meals Activity: No Restrictions, As Tolerated Follow Up/Referral: [facility] 02/17/[address] teran Medications: pepcid maalox Scheduled Atenolol (Atenolol), 50 MG PO DAILY, (Reported) Cephalexin (Keflex 500), 1 CAP PO TID Chlorthalidone (Chlorthalidone), 25 MG PO DAILY, (Reported) Famotidine (Pepcid AC), 20 MG PO BID Fluticasone Propionate (Nasal) (Flonase Allergy Relief), 50 MCG NA BID Levothyroxine Sodium (Levothyroxine Sodium), 25 MCG PO QAM, (Reported) Oxycodone HCl (Oxycodone Hydrochloride), 5 MG PO PRN, (Reported) Tizanidine Hydrochloride (Zanaflex), 0.5 TAB PO QPM, (Reported) Scheduled PRN Alum & Mag Hydrox-Simethicone (Maalox Plus), 30 ML PO Q6HP PRN Miscellaneous Medications Bisacodyl (Kp Bisacodyl), 25 MG OR, (Reported) Discharge Statement: "Patient was advised to return to the ER or call 911 if any headaches, dizziness, shortness of breath, chest pain, abdominal pain, bleeding, fevers, or worsening of medical condition. Patient was counseled about treatment plan, medications, possible side effects, patientverbalized understanding. All questions were answered to the best of my ability. This discharge took greater then 30 minutes in planning, reviewing documentation, counseling the patient, and discussing with other team members." ASSESSMENT ASSESSMENT Assessment GERD w LPR Date of Service: Feb 07, 2025 Billing Provider: QING GOULD MD Common Visit Codes: 61398-EBB/OBS DISCH DAY >30min QING GOULD MD Feb 07, 2025 12:51
[2025-02-07 13:03] VITALS: TEMP 36.7
== END 2025-02-07 13:45 | disposition home or self-care (01) | DRG 206 ==
LOC: ER 14:03 → OVERFLOW 20:03 → TELE-WESTW 22:41
PROVIDERS: ADMIT Student in an Organized Health Care Education/Training Program; ATTEND Student in an Organized Health Care Education/Training Program
DX: M94.0 Chondrocostal junction syndrome [Tietze] (principal); E87.6 Hypokalemia; I10 Essential (primary) hypertension; J45.909 Unspecified asthma, uncomplicated; K21.9 Gastro-esophageal reflux disease without esophagitis; G89.29 Other chronic pain; I95.9 Hypotension, unspecified; K29.70 Gastritis, unspecified, without bleeding; Z88.5 Allergy status to narcotic agent; Z88.1 Allergy status to other antibiotic agents; Z88.0 Allergy status to penicillin; Z79.2 Long term (current) use of antibiotics; Z90.49 Acquired absence of other specified parts of digestive tract; Z82.49 Family history of ischemic heart disease and other diseases of the circulatory system; Z79.899 Other long term (current) drug therapy
CPT/HCPCS: 36415; 71046; 80048; 80061; 84443; 84484; 85025; 93005; 93306; 99291; G0378; J1885